=== PATIENT | female | born 1975 | race Two or more races ===

== ENCOUNTER 2024-10-29 09:56 | Inpatient (IN) | payer BC ==
[2024-10-27 11:38] LABS: Hematocrit 39.6 % (36.0-46.0); Hemoglobin 13.2 g/dL (12.2-16.2); Mean Corpuscular Hemoglobin 29.8 pg (28.0-32.0); Mean Corpuscular Volume 89.1 fL (80.0-100.0); Nucleated Red Blood Cells % 0.0 %
[2024-10-27 11:50] LABS: INR 0.97 (0.9-1.15); Partial Thromboplastin Time 28.5 SEC (24.5-34.5); Prothrombin Time 10.3 sec (9.3-11.8)
[2024-10-27 12:17] LABS: Alanine Aminotransferase 12 U/L (7-40); Alkaline Phosphatase 85 U/L (46-116); Calcium 9.4 mg/dL (8.7-10.4)
[2024-10-27 12:18] LABS: Albumin 4.4 g/dL (3.2-4.8); Anion Gap 7 (5-15); BUN/Creatinine Ratio 19.5 (10.0-20.0); Bilirubin, Total 0.6 mg/dL (0.2-1.0); Blood Urea Nitrogen 17 mg/dL (9-23); Carbon Dioxide 25 mmol/L (20-31); Glucose 90 mg/dL (74-106); Potassium 4.7 mmol/L (3.5-5.1); Sodium 141 mmol/L (136-145); Total Protein 6.8 g/dL (5.7-8.2)
[2024-10-27 12:19] LABS: Chloride 109 mmol/L (98-107)
[2024-10-27 12:30] LABS: Urine Protein, UAD Negative (Negative)
[~2024-10-29] VITALS: Ht 157.5 cm; Wt 82.9 kg
[~2024-10-29 09:56] MED LIST: ATOR20TA PO; HYDROmorphone HCL 2 MG/ML VL/or syr ONE; KETAMINE 50mg/ML 1ml syringe ONE; LIDOCAINE 1% INJ PF 5ML AMP ONE; MIDAZOLAM HCL 2MG/2ML 2ml VIAL (1mg/ml) ONE; ONDANSETRON HCL 4 MG/2 ML VIAL ONE; PROPOFOL 10 MG/ML 20 ML IV ONE; ROCURONIUM 10MG/ML 10ML VIAL IV ONE; SODIUM CHLORIDE LOCK 10 ML ONE; SUGAMMADEX 200mg/2ml Vial (100MG/ML) IV ONE; fentaNYL CITRATE 100 MCG/2 ML VL ONE
[2024-10-29] MEDS: ceFAZolin 2 GM/D5W50ml 50 ML IV ONE (10:10)
[2024-10-29] MEDS ORDERED: HYDROmorphone HCL 2 MG/ML VL/or syr IV PRN (10:15)
[2024-10-29] MEDS ORDERED: MORPHINE SULFATE 4 MG/ML SYR/VIAL IV PRN (10:15)
[2024-10-29] MEDS: KETOROLAC TROMETH 30 MG/ML 1ML VIAL IV ONE (10:15)
[2024-10-29] MEDS ORDERED: MORPHINE SULFATE INJ 2 MG/ml SYRG IV PRN ×2 (10:57→14:00)
[2024-10-29] MEDS: BUPIVACAINE HCL 0.25% P/F 10 ML VIAL ONE (11:40)
[2024-10-29] MEDS: LIDOCAINE W/ EPINEPHRINE 1% 20ML VIAL ONE (11:40)
[2024-10-29] MEDS ORDERED: ONDANSETRON HCL 4 MG/2 ML VIAL IV PRN (11:45)
[2024-10-29] MEDS ORDERED: ACETAMINOPHEN/CODEINE#3 (300/30mg) TAB PO PRN (11:45)
[2024-10-29] MEDS: D5W/SOD CHL 0.45%/KCL 20MEQ 1,000 ML IV SCH (11:45)
[2024-10-29 11:49] VITALS: PULSE 88; RESP 17; O2SAT 100
[2024-10-29] MEDS: METOCLOPRAMIDE HCL 5MG/ml INJ 2ml VIAL IV ONE (12:24)
[2024-10-29] MEDS: HYDROmorphone HCL 2 MG/ML VL/or syr IV PRN ×2 (12:40→21:15)
--- NOTE | 2024-10-29 12:43 | DVHOP ---
DATE OF SURGERY: 10/29/2024 PREOPERATIVE DIAGNOSES: * Cholelithiasis. * Chronic cholecystitis. POSTOPERATIVE DIAGNOSES: * Cholelithiasis. * Chronic cholecystitis. SURGEON: Damian Ni MD CAGE MAKER MACHINE: Glen Cervantes NP ANESTHESIA: General endotracheal. ANESTHESIOLOGIST: Dr. Castro. PROCEDURES: * Laparoscopy. * Laparoscopic cholecystectomy. DESCRIPTION OF PROCEDURE: Under general endotracheal anesthesia with the patient's skin prepped and draped, a supraumbilical incision was made and Veress needle inserted by the hanging drop technique in order to establish pneumoperitoneum to 15 mmHg pressure by insufflation with carbon dioxide. With the abdomen fully distended, the needle was removed and replaced with a 5 mm trocar port through which a 0-degree viewing laparoscope was inserted, and under direct vision, 5 and 10 mm ports were inserted through the abdominal wall, the 5 mm port in the anterior axillary line at the level of the umbilicus on the right flank and the patient's subxiphoid skin in the midline for the 10 mm port. Instrumentation was introduced. Laparoscopy revealed no obvious unexpected pathology on the serosal surfaces visualized. The gallbladder was placed on tension. The cystic duct and cystic artery were identified, circumferentially dissected, skeletonized, and traced into the hepatocystic triangle so as to minimize the potential for inadvertent injury to the common bile duct. Subsequently, the cystic duct and cystic artery were divided between metallic clips close to the gallbladder, again attempting to avoid an injury to the common bile duct. Then, the gallbladder was removed from the liver bed by electrocautery and traction. The fully mobilized gallbladder was placed into the specimen bag, which was placed into the peritoneal cavity through the 10 mm port site and the gallbladder was removed from the peritoneal cavity. The subhepatic space was irrigated. Irrigant was aspirated. Small amount of hemostatic SNoW was placed into the liver bed of the gallbladder due to the intrahepatic portion of the gallbladder which resulted in some denuding of the parenchyma. At the termination of the procedure, there was no evidence of bleeding from either the liver bed or from the port sites. Further irrigation was accomplished. Irrigant was aspirated. Instrumentation was withdrawn. Pneumoperitoneum was evacuated. The fascial defect was closed using 0 Vicryl. The wound was approximated using Monocryl sutures, Dermabond glue and Steri-Strips. The patient remained stable throughout the procedure and left the operating room following an accurate needle and sponge count. No family members were present in the waiting room. MD SAUL Nguyen/JACK/MEDHAT TID: [id number] RECEIPT: [id number]
[2024-10-29] MEDS ORDERED: NITROGLYCERIN 0.4 MG SL TAB SL PRN (14:00)
--- NOTE | 2024-10-29 14:10 | DVHHP2 ---
Review of Systems Allergies: Coded Allergies: NO KNOWN ALLERGIES (Unverified , 10/27/24) Medications Current Medications Medications Dose Ordered Sig/Cedric Route Start Time Stop Time Status Last Admin Dose Admin Morphine Sulfate 2 mg Q4H PRN IV 10/29/24 10:15 10/29/24 14:16 Potassium Chloride/Dextrose/ Sod Cl 1,000 ml @ 120 mls/hr Q8H20M IV 10/29/24 11:45 Cefazolin Sodium 50 ml @ 100 mls/hr Q8HR IV 10/29/24 14:00 Hydromorphone HCl 1 mg Q3HPRN PRN IV 10/29/24 11:45 Acetaminophen/ Codeine Phosphate 1 tab Q4HP PRN PO 10/29/24 11:45 Ondansetron HCl 4 mg Q4HPRN PRN IV 10/29/24 11:45 Nitroglycerin 0.4 mg Q5MINP PRN SL 10/29/24 14:00 Morphine Sulfate 2 mg Q30M PRN IV 10/29/24 14:00 Exam Vital Signs Vital Signs Date Time Temp Pulse Resp B/P (MAP) Pulse Ox O2 Delivery O2 Flow Rate FiO2 10/29/24 10:05 97.6 74 18 126/78 (94) 98 97.6 Labs/Xrays Labs Test 10/29/24 12:30 10/27/24 11:20 Range/Units Total Bilirubin 0.5 0.2-1.0 mg/dL White Blood Count 8.8 4.4-10.8 10^3/uL Red Blood Count 4.44 4.0-5.20 10^6/uL Hemoglobin 13.2 12.2-16.2 g/dL Hematocrit 39.6 36.0-46.0 % Mean Corpuscular Volume 89.1 80.0-100.0 fL Mean Corpuscular Hemoglobin 29.8 28.0-32.0 pg Mean Corpuscular Hemoglobin Concent 33.5 32.0-36.0 g/dL Red Cell Distribution Width 14.1 11.8-14.3 % Platelet Count 279 140-450 10^3/uL Mean Platelet Volume 8.2 6.9-10.8 fL Neutrophils (%) (Auto) 58.3 37.0-80.0 % Lymphocytes (%) (Auto) 34.0 10.0-50.0 % Monocytes (%) (Auto) 4.6 0.0-12.0 % Eosinophils (%) (Auto) 2.3 0.0-7.0 % Basophils (%) (Auto) 0.8 0.0-2.0 % Neutrophils # (Auto) 5.1 1.6-8.6 10 ^3/uL Lymphocytes # (Auto) 3.0 0.4-5.4 10 ^3/uL Monocytes # (Auto) 0.4 0-1.3 10 ^3/uL Eosinophils # (Auto) 0.2 0-0.8 10 ^3/uL Basophils # (Auto) 0.1 0-0.2 10 ^3/uL Nucleated Red Blood Cells 0.0 % Prothrombin Time 10.3 9.3-11.8 sec Prothrombin Time INR 0.97 0.9-1.15 Activated Partial Thromboplast Time 28.5 24.5-34.5 SEC Urine Color Light-yellow Yellow Urine Clarity Clear Clear Urine pH 6.5 5.0-9.0 Urine Specific [place] 1.009 1.001-1.035 Urine Protein Negative Negative Urine Ketones Negative Negative Urine Blood Negative Negative /uL Urine Nitrite Negative Negative Urine Bilirubin Negative Negative Urine Urobilinogen Normal Negative mg/dL Urine Leukocyte Esterase Negative Negative /uL Urine RBC 1 0 - 4 /hpf Urine Microscopic WBC 0-5 /HPF Urine Squamous Epithelial Cells Few <5 /hpf Urine Bacteria None seen None Seen /hpf Urine Glucose Normal Normal mg/dL Sodium Level 141 136-145 mmol/L Potassium Level 4.7 3.5-5.1 mmol/L Chloride Level 109 H 98-107 mmol/L Carbon Dioxide Level 25 20-31 mmol/L Anion Gap 7 5-15 Blood Urea Nitrogen 17 9-23 mg/dL Creatinine 0.87 0.550-1.02 mg/dL Glomerular Filtration Rate Calc 82 >90 mL/min BUN/Creatinine Ratio 19.5 10.0-20.0 Serum Glucose 90 74-106 mg/dL Calcium Level 9.4 8.7-10.4 mg/dL Aspartate Amino Transferase (AST) 14 13-40 U/L Alanine Aminotransferase (ALT) 12 7-40 U/L Alkaline Phosphatase 85 46-116 U/L Total Protein 6.8 5.7-8.2 g/dL Albumin 4.4 3.2-4.8 g/dL Beta HCG, Quantitative 0.9 L 1.5-4.2 mIU/mL SEPSIS Sepsis Screen Physician Orders Oxygen By Face Mask (10/29/24 10:11) Bulb Planter (10/29/24 10:11) Notify Anesth. For Changes: (10/29/24 10:11) Pulse Ox Assessment (10/29/24 10:11) Bear Hugger For Temp <94.5f (10/29/24 10:11) May Have Head Of Bed Up (10/29/24 10:11) Follow Iv With Surgeon Orders (10/29/24 10:11) Discharge To Room Per Criteria (10/29/24 10:11) Morphine Sulfate Injection (10/29/24 10:15) To Pacu For Recovery (10/29/24 11:33) Oxygen Via Cool Mist Mask (10/29/24 11:33) Abdominal Binder (10/29/24 11:33) Clear Liq Diet (10/29/24 Lunch) Sequential Compression Device (10/29/24 11:33) Incentive Spirometry Q 1hr (10/29/24 11:33) Page Hospitalist For Admission (10/29/24 11:33) D5w/Sod Chl 0.45%/Kcl 20meq (10/29/24 11:45) Cefazolin 1gm/50ml (Ancef) (10/29/24 14:00) Hydromorphone Injection (Dilaudid Inject (10/29/24 11:45) Acetaminophen/Codeine Tablet (Tylenol W/ (10/29/24 11:45) Ondansetron Hcl (Zofran) (10/29/24 11:45) Admit (10/29/24 13:48) Oxygen By Nasal Cannula (10/29/24 13:48) Nitroglycerin Sublingual (Ntrostat Subli (10/29/24 14:00) Morphine Sulfate Injection (10/29/24 14:00) Stat Ekg For Chest Pain (10/29/24 13:48) Notify Md Of Changes From Base (10/29/24 13:48) Emergency Dysrhythmia Protocol (10/29/24 13:48) Rhythm Strips Once Every Shift (10/29/24 13:48) Complete Blood Count (10/30/24 06:00) Comprehensive Metabolic Panel (10/30/24 06:00) Vital Signs Date Time Temp Pulse Resp B/P (MAP) Pulse Ox O2 Delivery O2 Flow Rate FiO2 10/29/24 10:05 97.6 74 18 126/78 (94) 98 97.6 Medications Medications Dose Ordered Sig/Cedric Route Start Time Stop Time Status Last Admin Dose Admin Bupivacaine HCl 10 ml STK-MED ONCE .ROUTE 10/29/24 10:18 10/29/24 10:16 DC 10/29/24 11:40 7.5 ML Lidocaine/ Epinephrine 20 ml STK-MED ONCE .ROUTE 10/29/24 10:18 10/29/24 10:16 DC 10/29/24 11:40 7.5 ML Metoclopramide HCl 10 mg PRN ONCE IV 10/29/24 10:15 10/29/24 10:28 DC 10/29/24 12:24 10 MG Assessment/Plan Assessment/Plan see dictated note Plan discussed with: Patient My Orders Orders - MARIO SEO MD Procedure Category Date Status Time Admit ADMIT 10/29/24 Transmitted 13:48 Oxygen By Nasal RT 10/29/24 Transmitted Cannula 13:48 Nitroglycerin PHA 10/29/24 In Process Sublingual (Ntrostat 14:00 Morphine Sulfate PHA 10/29/24 In Process Injection 14:00 Stat Ekg For Chest [facility] 10/29/24 In Process Pain 13:48 Notify Md Of Changes [facility] 10/29/24 In Process From Base 13:48 Emergency Dysrhythmia [facility] 10/29/24 In Process Protocol 13:48 Rhythm Strips Once [facility] 10/29/24 In Process Every Shift 13:48 Complete Blood Count LAB 10/30/24 Verified 06:00 Comprehensive LAB 10/30/24 Verified Metabolic Panel 06:00 Date of Service: Oct 29, 2024 Billing Provider: MARIO SEO MD Common Visit Codes: [id number] INP/OBS CARE (HIGH) MARIO SEO MD Oct 29, 2024 14:10
--- NOTE | 2024-10-29 14:26 | DVHHP ---
ADMIT DATE: 10/29/2024 HISTORY OF PRESENT ILLNESS: The patient is a 49-year-old lady, who is admitted after she underwent laparoscopic cholecystectomy for cholelithiasis and chronic cholecystitis. The patient at this time denies any significant abdominal pain. No chest pain, no shortness of breath, no nausea or vomiting. Review of rest of systems otherwise currently negative. PAST MEDICAL HISTORY: She has hyperlipidemia. MEDICATIONS: She takes Lipitor. ALLERGIES: No known drug allergies. SOCIAL HISTORY: Denies smoking or alcohol. Lives at home with her . FAMILY HISTORY: Negative. PHYSICAL EXAMINATION: GENERAL: The patient is awake and alert. VITAL SIGNS: Temperature of 97.6, pulse 74 per minute, blood pressure 126/78. SHEENT: Unremarkable. NECK: There is no JVD. No pedal edema, LUNGS: Equal bilaterally. No added sounds. CARDIOVASCULAR SYSTEM: S1 and S2 is regular without murmurs. ABDOMEN: Soft. Bowel sounds are hypoactive. NEUROLOGIC: Nonfocal. MUSCULOSKELETAL: Normal. ASSESSMENT AND PLAN: * Hyperlipidemia. * Status post laparoscopic cholecystectomy for cholelithiasis and chronic cholecystitis. The patient will be placed on IV fluids along with pain medications. MD ABDI Navarro/ALEJANDRA TID: [id number] RECEIPT: [id number]
[2024-10-29] MEDS: ceFAZolin 1GM/50ML 50 ML IV SCH (15:46)
[2024-10-29 17:10] VITALS: BP 127/77; PULSE 81; RESP 18; TEMP 97.2; O2SAT 96
[2024-10-29 20:00] VITALS: PULSE 83; RESP 17; O2SAT 96
[2024-10-29 21:00] VITALS: BP 102/63; PULSE 83; RESP 17; TEMP 98.1; O2SAT 96
[2024-10-30 01:00] VITALS: BP 93/53; PULSE 77; RESP 17; TEMP 98.1; O2SAT 95
[2024-10-30 05:00] VITALS: BP 94/64; PULSE 65; RESP 16; TEMP 97.4; O2SAT 97
[2024-10-30 07:18] LABS: Alanine Aminotransferase 21 U/L (7-40); Albumin 3.9 g/dL (3.2-4.8); Alkaline Phosphatase 73 U/L (46-116); Anion Gap 8 (5-15); BUN/Creatinine Ratio 14.3 (10.0-20.0); Blood Urea Nitrogen 11 mg/dL (9-23); Calcium 9.0 mg/dL (8.7-10.4); Carbon Dioxide 24 mmol/L (20-31); Potassium 4.8 mmol/L (3.5-5.1); Sodium 141 mmol/L (136-145); Total Protein 5.9 g/dL (5.7-8.2)
[2024-10-30 07:19] LABS: Bilirubin, Total 0.6 mg/dL (0.2-1.0)
[2024-10-30 07:22] LABS: Chloride 109 mmol/L (98-107); Glucose 121 mg/dL (74-106)
[2024-10-30 07:42] LABS: Hematocrit 36.9 % (36.0-46.0); Hemoglobin 12.4 g/dL (12.2-16.2); Mean Corpuscular Hemoglobin 29.8 pg (28.0-32.0); Mean Corpuscular Volume 88.6 fL (80.0-100.0); Nucleated Red Blood Cells % 0.0 %
[2024-10-30 09:00] VITALS: BP 110/73; PULSE 62; RESP 18; TEMP 98.8; O2SAT 97
--- NOTE | 2024-10-30 10:02 | DVHDS2 ---
Discharge Summary Date of Admission Oct 29, 2024 at 13:48 Date of Discharge: Oct 30, 2024 Labs/Diagnostic Data: Laboratory Results Test 10/30/24 05:46 10/27/24 11:20 White Blood Count 17.1 10^3/uL (4.4-10.8) Red Blood Count 4.17 10^6/uL (4.0-5.20) Hemoglobin 12.4 g/dL (12.2-16.2) Hematocrit 36.9 % (36.0-46.0) Mean Corpuscular Volume 88.6 fL (80.0-100.0) Mean Corpuscular Hemoglobin 29.8 pg (28.0-32.0) Mean Corpuscular Hemoglobin Concent 33.6 g/dL (32.0-36.0) Red Cell Distribution Width 14.1 % (11.8-14.3) Platelet Count 272 10^3/uL (140-450) Mean Platelet Volume 8.9 fL (6.9-10.8) Neutrophils (%) (Auto) 84.4 % (37.0-80.0) Lymphocytes (%) (Auto) 10.6 % (10.0-50.0) Monocytes (%) (Auto) 4.9 % (0.0-12.0) Eosinophils (%) (Auto) 0.0 % (0.0-7.0) Basophils (%) (Auto) 0.1 % (0.0-2.0) Neutrophils # (Auto) 14.4 10 ^3/uL (1.6-8.6) Lymphocytes # (Auto) 1.8 10 ^3/uL (0.4-5.4) Monocytes # (Auto) 0.8 10 ^3/uL (0-1.3) Eosinophils # (Auto) 0 10 ^3/uL (0-0.8) Basophils # (Auto) 0 10 ^3/uL (0-0.2) Nucleated Red Blood Cells 0.0 % Sodium Level 141 mmol/L (136-145) Potassium Level 4.8 mmol/L (3.5-5.1) Chloride Level 109 mmol/L (98-107) Carbon Dioxide Level 24 mmol/L (20-31) Anion Gap 8 (5-15) Blood Urea Nitrogen 11 mg/dL (9-23) Creatinine 0.77 mg/dL (0.550-1.02) Glomerular Filtration Rate Calc 95 mL/min (>90) BUN/Creatinine Ratio 14.3 (10.0-20.0) Serum Glucose 121 mg/dL (74-106) Calcium Level 9.0 mg/dL (8.7-10.4) Total Bilirubin 0.6 mg/dL (0.2-1.0) Aspartate Amino Transferase (AST) 25 U/L (13-40) Alanine Aminotransferase (ALT) 21 U/L (7-40) Alkaline Phosphatase 73 U/L (46-116) Total Protein 5.9 g/dL (5.7-8.2) Albumin 3.9 g/dL (3.2-4.8) Prothrombin Time 10.3 sec (9.3-11.8) Prothrombin Time INR 0.97 (0.9-1.15) Activated Partial Thromboplast Time 28.5 SEC (24.5-34.5) Urine Color Light-yellow (Yellow) Urine Clarity Clear (Clear) Urine pH 6.5 (5.0-9.0) Urine Specific [place] 1.009 (1.001-1.035) Urine Protein Negative (Negative) Urine Ketones Negative (Negative) Urine Blood Negative /uL (Negative) Urine Nitrite Negative (Negative) Urine Bilirubin Negative (Negative) Urine Urobilinogen Normal mg/dL (Negative) Urine Leukocyte Esterase Negative /uL (Negative) Urine RBC 1 /hpf (0 - 4) Urine Microscopic WBC /HPF (0-5) Urine Squamous Epithelial Cells Few /hpf (<5) Urine Bacteria None seen /hpf (None Seen) Urine Glucose Normal mg/dL (Normal) Beta HCG, Quantitative 0.9 mIU/mL (1.5-4.2) Other Laboratory Tests 10/30/24 05:46 Brief Hx & Hospital Course: SEE DICTATED NOTE Condition at Discharge: Good Final Diagnosis/Problems List LAP CARLOS Discharge Disposition: Home Discharge Instruct/Medications Diet: Regular Activity: No Restrictions, As Tolerated Follow Up/Referral: SCHEDULE APPT WITH DR ROMERO IN 1 WK Medications: SCRIPT TO PHARMACY Scheduled Atorvastatin Calcium (Lipitor), 20 MG PO DAILY, (Reported) Discharge Statement: "Patient was advised to return to the ER or call 911 if any headaches, dizziness, shortness of breath, chest pain, abdominal pain, bleeding, fevers, or worsening of medical condition. Patient was counseled about treatment plan, medications, possible side effects, patientverbalized understanding. All questions were answered to the best of my ability. This discharge took greater then 30 minutes in planning, reviewing documentation, counseling the patient, and discussing with other team members." ASSESSMENT ASSESSMENT Assessment LORIE GONZALEZ Date of Service: Oct 30, 2024 Billing Provider: MARIO SEO MD Common Visit Codes: [id number] DISCH DAY >30min MARIO SEO MD Oct 30, 2024 10:01
[2024-10-30] MEDS ORDERED: TRAM-626 PO (10:03)
[2024-10-30] MEDS ORDERED: DOCU-94 PO (10:03)
[2024-10-30] MEDS ORDERED: CEPH500C PO (10:03)
--- NOTE | 2024-10-30 10:31 | DVHDS ---
DATE OF DISCHARGE: 10/30/2024 HISTORY OF PRESENT ILLNESS: The patient is a 49-year-old lady who was admitted after she underwent laparoscopic cholecystectomy for cholelithiasis and chronic cholecystitis. She has a history of hyperlipidemia. HOSPITAL COURSE: The patient did well postoperatively. She is tolerating oral diet and passing gas. The patient will be discharged home to resume her home medications as well as to be on Keflex 500 mg t.i.d. for 7 days, Colace p.r.n. for constipation, and tramadol p.r.n. for pain. She will follow up with Dr. Ni in 1 week. FINAL DIAGNOSES: * Hyperlipidemia. * Obesity. * Status post laparoscopic cholecystectomy for cholelithiasis and chronic cholecystitis. Time spent in discharge planning and review of plan with the patient and nursing was 37 minutes. MD ABDI Navarro/ABRAM TID: [id number] RECEIPT: [id number]
[2024-10-30 11:49] VITALS: BP 110/73; PULSE 62; RESP 18; TEMP 37.1; O2SAT 97
== END 2024-10-30 13:37 | disposition home or self-care (01) | DRG 419 ==
LOC: SUR 09:56 → OVERFLOW 13:48 → CENTRAL 17:29
PROVIDERS: ADMIT Internal Medicine; ATTEND Internal Medicine
PROC: 0FT44ZZ Resection of Gallbladder, Percutaneous Endoscopic Approach (ICD-10-PCS; principal; 2024-10-29 10:47)
DX: K80.10 Calculus of gallbladder with chronic cholecystitis without obstruction (principal); E78.5 Hyperlipidemia, unspecified; E66.9 Obesity, unspecified; K59.00 Constipation, unspecified; Z68.33 Body mass index [BMI] 33.0-33.9, adult
CPT/HCPCS: 36415; 80053; 81001; 82247; 84702; 85025; 85610; 85730; 86850; 86900; 86901; G0378; J1100; J2250; J2405; J2704; J3490